=== PATIENT | female | born 1965 | race Caucasian/White ===

== ENCOUNTER 2020-12-28 15:13 | Observation (INO) | payer BC ==
[~2020-12-28] VITALS: Ht 170.2 cm; Wt 93.8 kg
[~2020-12-28 15:13] MED LIST: FEMARA2.5 M1 PO; PAROXETINE20 MG PO; WELLBUTRIN150 M1 PO
[2020-12-28 15:37] LABS: HEMOGLOBIN 15.4 g/dl (12.0-16.0); IMMATURE GRANULOCYTES 0.4 % (0.0-5.0); MEAN CELL VOLUME 89.3 fL CALC (80.0-100.0); MEAN CORPUSCULAR HGB CONC 33.6 g/dL CAL (32.0-36.0); NEUT# 7.62 thou/uL (2.00-7.15); RED BLOOD COUNT 5.14 mill/uL (4.20-5.60); RED CELL DISTRI WIDTH 12.3 % (11.5-15.5)
[2020-12-28 15:38] LABS: HEMATOCRIT 45.9 % (37.0-47.0)
[2020-12-28 15:47] LABS: ALBUMIN 4.9 g/dL (3.2-5.0); BILIRUBIN, TOTAL 0.8 mg/dL (0.0-1.4); BUN 24 mg/dL (7-17); BUN/CREATININE RATIO 20 (12-20 (CALC)); CARBON DIOXIDE 20 mmol/l (22-30); CHLORIDE 100 mmol/l (95-108); CREATININE 1.2 mg/dL (0.5-1.0); GFR 46 ML/MIN (>=60 (CALC)); GFR FOR AFR.AMER. 56 ML/MIN (>=60 (CALC)); SODIUM 135 mmol/l (137-146); TOTAL PROTEIN 8.7 g/dL (6.3-8.2)
[2020-12-28 15:48] LABS: ALKALINE PHOSPHATASE 119 u/l (38-126); ANION GAP 19 (6-22 (CALC)); POTASSIUM 3.8 mmol/l (3.5-5.1); SGOT/AST 33 u/l (14-36)
--- NOTE | 2020-12-28 15:55 | NUR ---
PATIENT RETURNED FROM CT WITH THIS NURSE, APRILOX4 WITH FORGETFULNESS. PLACED ON MONITORS.
[2020-12-28 15:58] LABS: MYOGLOBIN 152 ng/mL (0 - 62)
[2020-12-28] MEDS ORDERED: PAROXETINE20 MG PO (16:22)
--- NOTE | 2020-12-28 16:45 | NUR ---
ASSISTED PATIENT TO THE BATHROOM, STEADY GAIT NOTED. URINE SENT TO LAB.
[2020-12-28 16:58] LABS: URINE BILIRUBIN - DIPSTICK NEGATIVE (NEGATIVE); URINE BLOOD DIPSTICK NEGATIVE (NEGATIVE); URINE COLOR YELLOW; URINE GLUCOSE - DIPSTICK NEGATIVE (NEGATIVE); URINE KETONE NEGATIVE (NEGATIVE); URINE LEUK ESTERASE NEGATIVE (NEGATIVE); URINE NITRITE - DIPSTICK NEGATIVE (Negative); URINE PH 6.5 (4.5-8.0); URINE PROTEIN - DIPSTICK NEGATIVE (NEG-TRACE); URINE SPECIFIC GRAVITY <=1.005; URINE UROBILINOGEN - DIPSTICK 0.2 E.U./dL (0.2)
--- NOTE | 2020-12-28 18:25 | NUR ---
REPORT RECEIVED FROM HEMA VELAZQUEZ. AWAITING FOR PATIENT TO COME UP TO THE FLOOR.
--- NOTE | 2020-12-28 18:28 | NUR ---
REPORT CALLED TO HEMA QUINN, ON [facility].
--- NOTE | 2020-12-28 18:41 | NUR ---
PT ARRIVED TO THE UNIT VIA WHEELCHAIR AND REPORT WAS GIVEN TO ME BY NURSE PERALES. PT WAS TRANSFERRED TO BED WITH STANDBY ASSIST. NO RESPIRATORY DISTRESS NOTED AND CALL LIGHT IS WITHIN REACH. WILL CONTINUE TO OBSERVE
[2020-12-28 18:45] VITALS: BP 136/76
[2020-12-28 20:00] VITALS: BP 119/70
--- NOTE | 2020-12-28 21:30 | NUR ---
PT WAS ADMITTED TO ROOM 279 VIA WHEELCHAIR TRANSPORT. PT IS ALERT AND ORIENTED AND ABLE TO MAKE NEEDS KNOWN. HEARING AND VISION ADEQUATE. HEART RHYTHM RGUALR. PT ON TELEMETRY AND SINUS RHYTHM NOTED. LUNG SOUNDS ARE CLEAR AND DIMINISHED. ABDOMEN IS SOFT TO TOUCH AND BOWEL SOUNDS ARE ACTIVE X 4 QUADRANTS. PT IS AMBULATORY AND GAIT AND BALANCE STEADY. 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 NIH SCALE NEGATIVE. CONTINENT OF B/B. RAC 20G HAS NO S/S OF ONFECTION AND DRESSING IS INTACT. CALL LIGHT WITHIN REACH. WILL CONTINUE TO OBSERVE
[2020-12-29] VITALS: BP 112/61
[2020-12-29 04:00] VITALS: BP 125/59
--- NOTE | 2020-12-29 04:33 | NUR ---
PT IN BED WITH EYES CLOSED AND NO S/S OF DISTRESS NOTED. EASILY AROUSED. CALL LIGHT WITHIN REACH. WILL CONTINUE TO OBSERVE
[2020-12-29 05:13] LABS: HEMATOCRIT 42.2 % (37.0-47.0); HEMOGLOBIN 13.7 g/dl (12.0-16.0); IMMATURE GRANULOCYTES 0.3 % (0.0-5.0); MEAN CELL VOLUME 90.6 fL CALC (80.0-100.0); MEAN CORPUSCULAR HGB 29.4 pG CALC (26.0-32.0); MEAN CORPUSCULAR HGB CONC 32.5 g/dL CAL (32.0-36.0); NEUT# 2.57 thou/uL (2.00-7.15); RED BLOOD COUNT 4.66 mill/uL (4.20-5.60); RED CELL DISTRI WIDTH 12.7 % (11.5-15.5)
[2020-12-29 05:40] LABS: ALBUMIN 4.1 g/dL (3.2-5.0); ALKALINE PHOSPHATASE 83 u/l (38-126); BILIRUBIN, TOTAL 0.7 mg/dL (0.0-1.4); BUN 22 mg/dL (7-17); BUN/CREATININE RATIO 22 (12-20 (CALC)); CHLORIDE 106 mmol/l (95-108); GFR 57 ML/MIN (>=60 (CALC)); GFR FOR AFR.AMER. > 60 ML/MIN (>=60 (CALC)); POTASSIUM 3.8 mmol/l (3.5-5.1); SGOT/AST 24 u/l (14-36); SODIUM 138 mmol/l (137-146)
[2020-12-29 05:44] LABS: ANION GAP 11 (6-22 (CALC)); CARBON DIOXIDE 25 mmol/l (22-30)
[2020-12-29 07:43] VITALS: BP 111/70
--- NOTE | 2020-12-29 08:00 | NUR ---
ASSESSMENT DONE. PATIENT IS A&O X3. RESPS EVEN AND UNLABORED. PATIENT DENIES PAIN AT THIS TIME. TELE IN PLACE. PATIENT DENIES ANY NEEDS AT THIS TIME. CALL LIGHT IN REACH.
[2020-12-29 10:57] VITALS: BP 110/58
[2020-12-29] MEDS ORDERED: ADLT ASA LOW81 MG PO (11:17)
--- NOTE | 2020-12-29 11:55 | NUR ---
PATIENT IS EATING HER LUNCH WITH NO S/S OF DISTRESS NOTED. PATIENT DENIES NEEDS AT THIS TIME. CALL LIGHT IN REACH.
--- NOTE | 2020-12-29 13:10 | NUR ---
Discharge instructions given. Patient verbalizes understanding of same. Discharged in stable condition via Wheelchair to Home with staff. All belongings sent with pt.
== END 2020-12-29 13:10 | disposition home or self-care (01) | DRG 72 ==
LOC: ED 15:13 → ED-I 16:07 → ED 16:07 → ED-I 17:03 → ED 17:12 → MS2 17:13
PROVIDERS: Emergency Medicine; ADMIT Internal Medicine; ATTEND Internal Medicine
DX: G45.4 Transient global amnesia (principal); F32.9 Major depressive disorder, single episode, unspecified; Z85.3 Personal history of malignant neoplasm of breast; Z20.822 Contact with and (suspected) exposure to COVID-19
CPT/HCPCS: G0378; Q9967